=== PATIENT | female | born 1980 | race Hispanic/Latino ===

== ENCOUNTER 2017-09-12 20:48 | Inpatient (IN) | payer BC, OTHER ==
[2017-09-12] MEDS ORDERED: Lactated Ringer's 1,000 ML IV SCH (21:15)
--- NOTE | 2017-09-12 21:25 | OBHP ---
Datetime: 09/12/2017 21:04 IP Adm Impression: Term, intrauterine IP Admit Plan: Admit to unit Admit Comment, IP Provider: @ 39 wks GA c/o ctx q 5 min initially 2/10 now incresaign intens ity and frequency. pt dneis any lof, vb,+FM. Pt reports receies pnc by Dr De Jesus Ante: JESE receives Iron infusions Dr Mdeley OB: x 2 uncomplcaited, 7lbs CLINICAL RADIOLOGIST: Denies hx of abnormal pap, fibroids, ovarian cyst, STI PMH: JESE PSH: denies MEDS: Iron, pnv SHX: negative etoh/tobacco/drugs NKDA A/P @ 39 wks GA admit to L+D npo, ivf admission labs cont toco adn efm analgesia prn plan as per Dr De Jesus cervidl inserted 21:20 Pelvic Type - PN: Adequate Extremities - PN: Normal Abdomen - PN: Normal Back - PN: Normal Breast - PN: Normal Lungs - PN: Normal Heart - PN: Normal Thyroid - PN: Not Done Neurologic - PN: Not Done HEENT - PN: Normal General - PN: Normal Presentation-Admit: Vertex FHR - Baseline A Provider: 135 Contraction Comments Provider: q 5 min Gestation - Est Wks by US: 39.0 IP Hx Assessment: The History has been Reviewed and is Current EGA AdmitDate IP: 39.0 Vital Signs Provider: Reviewed; Within Normal Limits IP Chief Complaint: Uterine contractions NICHD Variability Prov Fetus A: Moderate 6-25bpm FHR Category Provider Fetus A: Category I NICHD Decel Fetus A IP Provider: None Dilatation, Provider: 1 Effacement, Provider: long Station, Provider: -3 Genitourinary Exam: Normal DTRs - PN: Normal
[2017-09-12 21:40] LABS: BASO # 0.1 K/uL (0.0-0.2); BASO % 1.4 % (0.0-2.0); EOS # 0.1 K/uL (0.0-0.7); EOS % 0.9 % (0.0-4.0); HEMATOCRIT 33.9 % (34.0-47.0); LYMPH # 2.1 K/uL (1.0-4.3); LYMPH % 20.5 % (20.0-40.0); MEAN CELL VOLUME 82.4 fL (81.0-99.0); MEAN CORPUSCULAR HEMOGLOBIN 27.9 pg (27.0-31.0); MEAN CORPUSCULAR HGB CONC 33.9 g/dL (33.0-37.0); MONO # 0.5 K/uL (0.0-0.8); MONO % 4.7 % (0.0-10.0); NRBC % 0.1 % (0.0-2.0); RED CELL DISTRIBUTION WIDTH 20.3 % (11.5-14.5); WHITE BLOOD COUNT 10.1 K/uL (4.8-10.8)
[2017-09-12 21:53] LABS: ALKALINE PHOSPHATASE 192 U/L (38-126); ALT/SGPT 14 U/L (9-52); AST/SGOT 26 U/L (14-36); BILIRUBIN,TOTAL 0.6 mg/dL (0.2-1.3); BLOOD UREA NITROGEN 6 mg/dL (7-17); CALCIUM 8.6 mg/dl (8.6-10.4); CARBON DIOXIDE 19 mmol/L (22-30); CHLORIDE 103 mmol/L (98-107); GFR AFRICAN-AMERICAN > 60; GLUCOSE,RANDOM 74 mg/dL (65-105); POTASSIUM 3.7 mmol/L (3.6-5.2); SODIUM 130 mmol/L (132-148); TOTAL PROTEIN 7.2 g/dL (6.3-8.3)
[2017-09-12 21:54] LABS: RBC URINE 1 /hpf (0-3); TRANSITIONAL EPITHIAL < 1 /hpf (0-3); URINE BACTERIA RARE (<OCC); URINE BILIRUBIN NEGATIVE (NEGATIVE); URINE BLOOD 1+ (NEGATIVE); URINE COLOR Straw (YELLOW); URINE GLUCOSE (UA) NORMAL (Normal); URINE KETONE 1+ mg/dL (NEGATIVE); URINE LEUKOCYTE ESTERASE NEG Leu/uL (Negative); URINE PROTEIN NEGATIVE (NEGATIVE); URINE UROBILINOGEN NORMAL mg/dL (0.2-1.0); WBC URINE 1 /hpf (0-5)
[2017-09-12 22:06] LABS: RAPID PLASMA REAGIN NONREACTIVE (NONREACTIVE)
[2017-09-13] MEDS ORDERED: Bupivacaine HCl/FentaNYL Cit 100 ML EPI ONE (10:33)
[2017-09-13] MEDS ORDERED: Lidocaine 2% Inj (20ml) ONE (16:45)
[2017-09-13] MEDS ORDERED: Morphine 1 mg/ml preservative-free Inj(Duramorph) ONE (17:11)
[2017-09-13] MEDS ORDERED: Sodium Citrate/Citric Acid 15 ml Sol ONE (17:13)
[2017-09-13] MEDS ORDERED: ceFAZolin IV 2 gm in Dextrose 2 GM/50 ML BAG IVPB ONE ×2 (17:13→18:00)
[2017-09-13] MEDS ORDERED: ceFAZolin 2 GM in Sodium Chloride 0.9% 100 ML IVPB ONE (17:27)
[2017-09-13] MEDS ORDERED: Sodium Citrate/Citric Acid 15 ml Sol PO ONE (17:27)
[2017-09-13] MEDS ORDERED: Hydrocodone/Acetaminophen 5 mg /300 mg Tab PO PRN (17:30)
[2017-09-13] MEDS ORDERED: ePHEDrine 50 mg/ml Inj ONE (17:36)
[2017-09-13] MEDS ORDERED: Phenylephrine 10 mg/ml Inj ONE (17:37)
[2017-09-13] MEDS ORDERED: Oxytocin 10 Units/ml Inj ONE ×2 (18:23→18:24)
[2017-09-14 08:33] LABS: HEMATOCRIT 29.8 % (34.0-47.0); MEAN CELL VOLUME 83.6 fL (81.0-99.0); MEAN CORPUSCULAR HEMOGLOBIN 28.5 pg (27.0-31.0); MEAN CORPUSCULAR HGB CONC 34.1 g/dL (33.0-37.0); MEAN PLATELET VOLUME 8.2 fL (7.2-11.7); RED CELL DISTRIBUTION WIDTH 20.8 % (11.5-14.5); WHITE BLOOD COUNT 11.7 K/uL (4.8-10.8)
[2017-09-14] MEDS: Simethicone 80 mg Chewtab PO SCH ×6 (10:13→23:00)
--- NOTE | 2017-09-14 14:03 | OBDS ---
DELIVERY PERSONNEL Delivery Doctor: Kevin De Jesus MD Scrub Nurse: Emiliana Joseph Forest Ranger: Valerie Landaverde RN Anesthesiologist: Rafaela MATERNAL INFORMATION Delivery Anesthesia: Spinal Medications in Delivery: additional 20mg pitocin to first bag Estimated Blood Loss (ml): 500 Placenta Cultured: No Maternal Complications: Other Other Maternal Complications: CPD Provider Comments: Very large gelatinous umbilical cord. Sent to Pathology LABOR SUMMARY EDC: 09/19/2017 00:00 No. Babies in Womb: 1 Attempted: No Labor Anesthesia: Epidural LABOR INFORMATION Reason for Induction: Other Reason for Induction Other: elective Onset of Labor: 09/12/2017 10:00 Cervical Ripening Agents: Cervidil (Annotations: INSERTED VAGINALLY BY DR. ZAMUDIO) Oxytocin: N/A Group B Beta Strep: Negative Antibiotics # of Doses: 1 Antibiotics Time of Last Dose: 1805 Steroids Given: None Reason Steroids Not Administered: Not Applicable MEMBRANES Membranes Rupture Method: Artificial (Annotations: per Dr De Jesus) Rupture of Membranes: 09/13/2017 15:30 Length of Rupture (hrs): 2.80 Amniotic Fluid Color: Clear Amniotic Fluid Amount: Moderate Amniotic Fluid Odor: None STAGES OF LABOR Stage 3 hrs: 0 Stage 3 min: 1 Total Time in Labor hrs: 32 Total Time in Labor min: 19 CSECTION DELIVERY Primary Indication: Failed Induction Other Primary Indication: CPD Secondary Indication: Protracted Descent CSection Urgency: Non Elective CSection Incidence: Primary Labor: Labor Elective: Nonelective CSection Incision: Lower Uterine Transverse BABY A INFORMATION Infant Delivery Date/Time: 09/13/2017 18:18 Method of Delivery: Born in Route : No : N/A Forceps: N/A Vacuum Extraction: N/A Shoulder Dystocia : No SHOULDER DYSTOCIA BABY A Delivery Date/Time: 09/13/2017 18:18 PRESENTATION/POSITION BABY A Presentation: Cephalic Cephalic Presentation: Vertex Vertex Position: Left Occipital Anterior Breech Presentation: N/A PLACENTA INFORMATION BABY A Placenta Delivery Time : 09/13/2017 18:19 Placenta Method of Delivery: Manual Removal Placenta Status: Delivered SCORES BABY A Heart Rate 1 min: >100 bpm Resp Effort 1 min: Good Cry Reflex Irritability 1 min: Cough or Sneeze or Pulls Away Muscle Tone 1 min: Active Motion Color 1 min: Body [place], Extremities Blue SCORE 1 MIN: 9 Heart Rate 5 min: >100 bpm Resp Effort 5 min: Good Cry Reflex Irritability 5 min: Cough or Sneeze or Pulls Away Muscle Tone 5 min: Active Motion Color 5 min: Body [place], Extremities Blue SCORE 5 MIN: 9 INFORMATION BABY A Gestational Age at Delivery: 39.1 Gestational Status: Term Infant Outcome : Liveborn Infant Condition : Fair Infant Sex: Female IDENTIFICATION/MEDS BABY A ID Band Number: [id number] ID Band Location: Left Leg; Left Arm Sensor Applied: Yes Sensor Number: [id number] Sensor Location : Cord Clamp Vitamin K Given : Aquamephyton 1 mg IM; Left Thigh Erythromycin Given: Given Both Eyes WEIGHT/LENGTH BABY A Birthweight (gms): 3680 Weight (lb): 8 Weight (oz): 2 Length Inches: 20.50 Length cms: 52.1 CORD INFORMATION BABY A No. Cord Vessels: 3 Nuchal Cord : N/A Nuchal Cord Other: around leg Cord Blood Taken: Yes Infant Suction: Mouth ASSESSMENT BABY A Infant Complications: None Physical Findings at Delivery: Within Normal Limits Respirations: Appears Normal Sales Service Supervisor/ALS Called : Yes Care By: Chen Transferred To: Nursery
--- NOTE | 2017-09-14 14:07 | OBPPN ---
Datetime: 09/14/2017 14:01 PP Pain Prov: Within normal limits PP Breasts Prov: Normal PP Heart Prov: Normal PP Lungs Prov: Normal PP Abdomen/Uterus Prov: Normal PP Lochia Prov: Normal PP Vulva/Perineum Prov: Normal PP CVA Tenderness Prov: Normal PP Progress Prov: Normal PP Impression Prov: Normal progression PP Plan Prov: Continue present management PP Progress Note Prov: No C/O Pt. refused to have tubal ligation VS Stable Abdomen Soft Wound Clean P: Advance diet IP PP Procedures: None
[2017-09-14 18:29] VITALS: RESP 20
--- NOTE | 2017-09-15 08:08 | OBPPN ---
Datetime: 09/15/2017 08:05 PP Pain Prov: Within normal limits PP Nausea Prov: Denies PP Flatus Prov: Yes PP Abdomen/Uterus Prov: Normal PP Lochia Prov: Normal PP Extremities Prov: Normal PP C/S Incision Prov: Normal PP Comments Phys Exam Prov: fudus below umb ext no edemamno calf ten incision clean and dry PP Impression Prov: Normal progression PP Plan Prov: Discharge PP Progress Note Prov: pt was seen at bed side, pain under control,no n/v, toleratig deit, voiding, min lochia,flatus + pod#3 s/p c/s dc home no sex percocet prn f/u pmd in 1-2 week Vital Signs Provider PP: Reviewed
--- NOTE | 2017-09-15 08:08 | OBDCSUM ---
Datetime: 09/15/2017 08:07 Discharged to, Provider: Home Follow up at, Provider: 1-2week Discharge Diagnosis, Provider: Term Delivered Follow up in weeks, Provider: dr iy Discharge Comment, Provider: tn home no sex percocet prn f/u pmd in 1-2 week
[2017-09-15] MEDS: Simethicone 80 mg Chewtab PO SCH ×3 (09:28→17:33)
--- NOTE | 2017-09-15 12:06 | OBDCSUM ---
Datetime: 09/15/2017 12:02 Discharged to, Provider: Home Follow up at, Provider: Dr. Yi Disch Instr Activity: Normal activity Disch Instr Diet: Regular Discharge Instructions, Provider: Routine instructions given Discharge Diagnosis, Provider: Term Delivered Discharge Time: 09/15/2017 12:03 Follow up in weeks, Provider: 1 week Disch Referrals: None Contraception discussed, Prov: Yes Disch Activity Restrictions: No sexual activity; Nothing in vagina - [place], tampons, douche Contraception after Delivery: Not Planning to Use Datetime: 09/15/2017 08:07 Discharged to, Provider: Home Follow up at, Provider: 1-2week Discharge Diagnosis, Provider: Term Delivered Follow up in weeks, Provider: dr yi Discharge Comment, Provider: dc home no sex percocet prn f/u pmd in 1-2 week
[2017-09-15] MEDS ORDERED: Influenza Vaccine 60 mcg/0.5 mL SYR (4YR UP) IM ONE (15:06)
[2017-09-15 22:20] VITALS: BP 108/72; PULSE 98; TEMP 99.6; O2SAT 98
== END 2017-09-15 17:20 | disposition home or self-care (01) | DRG 766 ==
LOC: C.EROB 20:48 → C.4D 21:08 → C.4M 09-13 21:44
PROVIDERS: ADMIT Obstetrics & Gynecology Gynecology; ATTEND Obstetrics & Gynecology Gynecology
PROC: 10D00Z1 Extraction of Products of Conception, Low, Open Approach (ICD-10-PCS; principal; 2017-09-14)
DX: O33.9 Maternal care for disproportion, unspecified (principal); O61.0 Failed medical induction of labor; Z37.0 Single live birth; Z3A.39 39 weeks gestation of pregnancy